=== PATIENT | female | born 1960 | race Caucasian/White ===

== ENCOUNTER 2021-09-09 14:54 | Inpatient (IN) | payer OTHER ==
[~2021-09-09] VITALS: Ht 160 cm; Wt 62.7 kg
[2021-09-09 16:24] LABS: BASOPHIL 0.3 % (0-2); EOSINOPHIL 0 % (0-5); HCT 44.9 % (37.0-47.0); LYMPHOCYTE 18.1 % (15-48); MCH 28.5 pg (25.0-31.0); MCHC 33.4 g/dL (32.0-36.0); MCV 85.4 fL (78.0-100.0); MONOCYTE 16.4 % (0-12); NEUTROPHIL 64.9 % (41-80); NRBC 0; PLT 184 K/uL (150-400); RBC 5.26 M/uL (4.20-5.40); RDW 12.1 % (11.5-14.0); WBC 3.5 K/uL (4.0-10.5)
[2021-09-09 16:34] LABS: ALBUMIN 3.4 g/dL (3.4-5.0); BILIRUBIN - TOTAL 0.5 mg/dL (0.2-1.0); BUN/CREAT RATIO (CALC) 18.7 RATIO; CREATININE 1.07 mg/dL (0.51-0.95); POTASSIUM 3.9 mmol/L (3.5-5.1); TOTAL PROTEIN 7.4 g/dL (6.4-8.2)
[2021-09-09 17:14] LABS: INFLUENZA A NAA NEGATIVE (NEGATIVE)
[2021-09-09 17:19] LABS: CORONAVIRUS 2019 SARS-COV-2 POSITIVE (NEGATIVE)
[2021-09-09 18:03] LABS: BILIRUBIN NEGATIVE (NEGATIVE); BLOOD 2+ Ery/uL (NEGATIVE); CLARITY CLEAR (CLEAR); COLOR YELLOW (YELLOW); GLUCOSE (U) 3+ mg/dL (NORMAL); LEUKOCYTES NEGATIVE Leu/uL (NEGATIVE); NITRITE POSITIVE (NEGATIVE); PROTEIN TRACE (LOW) mg/dL (NEGATIVE); SPECIFIC GRAVITY 1.025 (1.001-1.030)
[2021-09-09 18:24] LABS: LACTIC ACID 1.7 mmol/L (0.4-1.9)
[2021-09-09 18:24] LABS: BACTERIA 3+; SQUAMOUS EPITHELIAL CELLS RARE; URINARY WBC RARE
[2021-09-09 18:53] LABS: INR 0.93 (0.9-1.2); PROTHROMBIN TIME 11.9 SECONDS (11.8-13.4)
[2021-09-09] MEDS ORDERED: ZESTRIL5 MG PO (22:28)
[2021-09-09] MEDS ORDERED: LEVOTHYROXINE137 MC1 PO (22:28)
[2021-09-09] MEDS ORDERED: TOUJEO MAX300 UNIT/1 SC (22:32)
[2021-09-09] MEDS ORDERED: INVOKANA300 MG PO (22:32)
[2021-09-09] MEDS ORDERED: OXYCODONE HCL10 MG PO (22:33)
[2021-09-10 06:47] LABS: BASOPHIL 0 % (0-2); EOSINOPHIL 0 % (0-5); HCT 41.1 % (37.0-47.0); HGB 13.8 g/dl (12.5-16.0); LYMPHOCYTE 24.2 % (15-48); MCH 28.4 pg (25.0-31.0); MCHC 33.6 g/dL (32.0-36.0); MCV 84.6 fL (78.0-100.0); MONOCYTE 15.9 % (0-12); MPV 10.9 fL (6.0-9.5); NEUTROPHIL 59.5 % (41-80); NRBC 0; PLT 147 K/uL (150-400); RBC 4.86 M/uL (4.20-5.40); RDW 11.9 % (11.5-14.0); WBC 2.3 K/uL (4.0-10.5)
[2021-09-10 07:06] LABS: BUN/CREAT RATIO (CALC) 21.4 RATIO; CREATININE 1.03 mg/dL (0.51-0.95); POTASSIUM 4.1 mmol/L (3.5-5.1)
[2021-09-11 06:02] LABS: BASOPHIL 0.2 % (0-2); EOSINOPHIL 0 % (0-5); HCT 39.9 % (37.0-47.0); HGB 13.6 g/dl (12.5-16.0); MCH 28.6 pg (25.0-31.0); MCHC 34.1 g/dL (32.0-36.0); MCV 83.8 fL (78.0-100.0); MONOCYTE 14.1 % (0-12); MPV 11.1 fL (6.0-9.5); NEUTROPHIL 65.3 % (41-80); NRBC 0; PLT 145 K/uL (150-400); RBC 4.76 M/uL (4.20-5.40); RDW 11.9 % (11.5-14.0)
[2021-09-11 06:13] LABS: WBC 4.7 K/uL (4.0-10.5)
[2021-09-11 07:21] LABS: ALBUMIN 2.6 g/dL (3.4-5.0); BILIRUBIN - TOTAL 0.4 mg/dL (0.2-1.0); BUN/CREAT RATIO (CALC) 26.3 RATIO; CREATININE 0.95 mg/dL (0.51-0.95); GLOBULIN (CALCULATION) 3.7 g/dL; TOTAL PROTEIN 6.3 g/dL (6.4-8.2)
--- NOTE | 2021-09-11 16:40 | NUR ---
PER RAN TC TO PT SHE IS ISOLATION TO INQUIRE IF WHAT COMPANY SHE WOULD LIKE TO USE IF SHE NEEDS O2 UPON DISCHARGE. PT. STATED THAT SHE DID NOT HAVE A PREFERENCE AND THAT [employer] WOULD BE FINE. PT. STATED THAT HER DAUGHTER RESIDES WITH HER AND WILL BE ABLE TO ASSIST HER.
[2021-09-13 06:51] LABS: BASOPHIL 0.1 % (0-2); EOSINOPHIL 0 % (0-5); HCT 40.7 % (37.0-47.0); HGB 13.7 g/dl (12.5-16.0); LYMPHOCYTE 18.9 % (15-48); MCH 28.5 pg (25.0-31.0); MCHC 33.7 g/dL (32.0-36.0); MCV 84.6 fL (78.0-100.0); MONOCYTE 10.8 % (0-12); MPV 11.3 fL (6.0-9.5); NEUTROPHIL 69.6 % (41-80); NRBC 0; PLT 149 K/uL (150-400); RBC 4.81 M/uL (4.20-5.40); RDW 12.2 % (11.5-14.0)
[2021-09-13 06:54] LABS: WBC 6.7 K/uL (4.0-10.5)
[2021-09-13 07:50] LABS: BUN/CREAT RATIO (CALC) 29.3 RATIO; CREATININE 0.82 mg/dL (0.51-0.95); POTASSIUM 4.4 mmol/L (3.5-5.1)
[2021-09-15 07:32] LABS: BASOPHIL 0.1 % (0-2); EOSINOPHIL 0 % (0-5); HCT 41.1 % (37.0-47.0); HGB 14.3 g/dl (12.5-16.0); MCH 28.7 pg (25.0-31.0); MCHC 34.8 g/dL (32.0-36.0); MCV 82.4 fL (78.0-100.0); MONOCYTE 15.5 % (0-12); MPV 11.2 fL (6.0-9.5); NEUTROPHIL 72.4 % (41-80); NRBC 0; PLT 168 K/uL (150-400); RBC 4.99 M/uL (4.20-5.40); RDW 12.1 % (11.5-14.0); WBC 10.3 K/uL (4.0-10.5)
[2021-09-15 07:38] LABS: LYMPHOCYTE 11.4 % (15-48)
[2021-09-15 08:45] LABS: CREATININE 0.69 mg/dL (0.51-0.95); POTASSIUM 3.7 mmol/L (3.5-5.1)
[2021-09-17 07:20] LABS: BASOPHIL 0.2 % (0-2); EOSINOPHIL 0.2 % (0-5); HCT 41.5 % (37.0-47.0); HGB 13.9 g/dl (12.5-16.0); MCH 28.1 pg (25.0-31.0); MCHC 33.5 g/dL (32.0-36.0); MCV 83.8 fL (78.0-100.0); MONOCYTE 9.4 % (0-12); MPV 11.8 fL (6.0-9.5); NEUTROPHIL 84.1 % (41-80); NRBC 0; PLT 119 K/uL (150-400); RBC 4.95 M/uL (4.20-5.40); RDW 12.3 % (11.5-14.0); WBC 12.3 K/uL (4.0-10.5)
[2021-09-17 08:51] LABS: ALBUMIN 2.7 g/dL (3.4-5.0); BILIRUBIN - TOTAL 0.6 mg/dL (0.2-1.0); BUN/CREAT RATIO (CALC) 31.8 RATIO; CREATININE 0.85 mg/dL (0.51-0.95); GLOBULIN (CALCULATION) 3.3 g/dL
[2021-09-18 04:44] LABS: BASOPHIL 0 % (0-2); EOSINOPHIL 0.4 % (0-5); HCT 33.7 % (37.0-47.0); HGB 11.1 g/dl (12.5-16.0); LYMPHOCYTE 12.7 % (15-48); MCH 28.3 pg (25.0-31.0); MCHC 32.9 g/dL (32.0-36.0); MONOCYTE 12.5 % (0-12); MPV 11.3 fL (6.0-9.5); NEUTROPHIL 73.4 % (41-80); NRBC 0; PLT 105 K/uL (150-400); RBC 3.92 M/uL (4.20-5.40); RDW 12.6 % (11.5-14.0); WBC 4.8 K/uL (4.0-10.5)
[2021-09-18 06:16] LABS: ALBUMIN 2.2 g/dL (3.4-5.0); BILIRUBIN - TOTAL 0.4 mg/dL (0.2-1.0); BUN/CREAT RATIO (CALC) 34.4 RATIO; CREATININE 0.93 mg/dL (0.51-0.95); GLOBULIN (CALCULATION) 3.3 g/dL; TOTAL PROTEIN 5.5 g/dL (6.4-8.2)
[2021-09-19 05:58] LABS: HCT 33.6 % (37.0-47.0); HGB 11.4 g/dl (12.5-16.0); MCH 28.2 pg (25.0-31.0); MCHC 33.9 g/dL (32.0-36.0); MCV 83.2 fL (78.0-100.0); MPV 11.4 fL (6.0-9.5); RBC 4.04 M/uL (4.20-5.40); RDW 12.1 % (11.5-14.0); WBC 7.8 K/uL (4.0-10.5)
[2021-09-19 06:29] LABS: BUN/CREAT RATIO (CALC) 32.8 RATIO; CREATININE 0.67 mg/dL (0.51-0.95)
[2021-09-20 05:05] LABS: HCT 36.9 % (37.0-47.0); HGB 12.4 g/dl (12.5-16.0); MCH 28.2 pg (25.0-31.0); MCHC 33.6 g/dL (32.0-36.0); MCV 83.9 fL (78.0-100.0); MPV 12.3 fL (6.0-9.5); RBC 4.4 M/uL (4.20-5.40); WBC 6.5 K/uL (4.0-10.5)
[2021-09-20 05:28] LABS: CREATININE 0.72 mg/dL (0.51-0.95); POTASSIUM 4.7 mmol/L (3.5-5.1)
--- NOTE | 2021-09-23 01:33 | NUR ---
At approximately 0120, patient used call light and asked to go to the bathroom. While this nurse was transferring the patient from her bed to the bedside commode, the patient collapsed into the nurse's arms. As she fell onto the nurse, her Vapotherm cannula and NRB came off. This nurse lowered her to the bedside commode and propped her up. This nurse was unable to support the patient and put her Vapotherm and NRB back on her, so he hit the nurse assist button. When assistance arrived, the patient's O2 devices were placed back on her and she was moved back to the bed. Upon returning to the bed, her O2 saturation was 58%. Once in bed, her O2 saturation began to recover. The patient was alert and oriented to person, place, and time. She said that she had a stomach ache, but denied dizziness, palpitatons, and chest pain. At the writing of this note, her O2 saturation was 87%. This nurse will continue to monitor.
[2021-09-23 06:16] LABS: BASOPHIL 0.1 % (0-2); EOSINOPHIL 0.3 % (0-5); HCT 35.8 % (37.0-47.0); HGB 12.1 g/dl (12.5-16.0); LYMPHOCYTE 6.3 % (15-48); MCH 28.3 pg (25.0-31.0); MCHC 33.8 g/dL (32.0-36.0); MCV 83.8 fL (78.0-100.0); MPV 10.8 fL (6.0-9.5); NEUTROPHIL 86.5 % (41-80); NRBC 0; PLT 236 K/uL (150-400); RBC 4.27 M/uL (4.20-5.40); RDW 12.2 % (11.5-14.0); WBC 14.5 K/uL (4.0-10.5)
[2021-09-23 07:09] LABS: BUN/CREAT RATIO (CALC) 37.3 RATIO; CREATININE 0.75 mg/dL (0.51-0.95); POTASSIUM 4.3 mmol/L (3.5-5.1)
--- NOTE | 2021-09-23 13:37 | NUR ---
0730 AM - PT 02 SATS RANGING FROM 65-75 ON VAPOTHERM 40/100% W/ NONREBREATHER AT 15L OVER THAT. DR CLEMENS NOTIFIED. THIS RN, RT AND MD EACH DISCUSSED W/ PT HER PREVIOUSLY STATED WISHES TO NOT BE INTUBATED. PT STATED THIS IS STILL HER WISH. SISTER MIRIAM LISTED EMERGENCY CONTACT. SHE WAS CONTACTED AND UPDATED ON PT'S DETERIORATING STATUS. NOTIFIED THAT FAMILY MAY VISIT. 1200- PT SISTER, MOTHER, DAUGHTER AND SON AT BEDSIDE. S/W DR CLEMENS ABOUT DNR STATUS PT IS NOW MINIMALLY RESPONSIVE W/ BPS 70S/40S. 1330 - PT ON SAME AMOUNT OF 02, SATS REMAIN IN 70S, BPS REMAIN 70S/40S.
== END 2021-09-23 23:50 | disposition expired | DRG 177 ==
LOC: FER 14:54 → FMS 19:23 → FTCU 09-17 15:09
PROVIDERS: Hospitalist; Internal Medicine; Nurse Practitioner; Physician Assistant; ADMIT Internal Medicine
PROC: XW033E5 Introduction of Remdesivir Anti-infective into Peripheral Vein, Percutaneous Approach, New Technology Group 5 (ICD-10-PCS; 2021-09-09)
PROC: 8E0ZXY6 Isolation (ICD-10-PCS; 2021-09-09)
PROC: 5A0955A Assistance with Respiratory Ventilation, Greater than 96 Consecutive Hours, High Flow/Velocity Cannula (ICD-10-PCS; principal; 2021-09-17)
PROC: XW0DXM6 Introduction of Baricitinib into Mouth and Pharynx, External Approach, New Technology Group 6 (ICD-10-PCS; 2021-09-17)
DX: U07.1 COVID-19 (principal); J12.82 Pneumonia due to coronavirus disease 2019; J96.01 Acute respiratory failure with hypoxia; G93.41 Metabolic encephalopathy; N17.9 Acute kidney failure, unspecified; E87.1 Hypo-osmolality and hyponatremia; K21.9 Gastro-esophageal reflux disease without esophagitis; E89.0 Postprocedural hypothyroidism; G89.29 Other chronic pain; Z66 Do not resuscitate; Z51.5 Encounter for palliative care; D69.6 Thrombocytopenia, unspecified; E11.40 Type 2 diabetes mellitus with diabetic neuropathy, unspecified; E11.65 Type 2 diabetes mellitus with hyperglycemia; T38.0X5A Adverse effect of glucocorticoids and synthetic analogues, initial encounter; Z98.890 Other specified postprocedural states; Z79.890 Hormone replacement therapy; Z79.899 Other long term (current) drug therapy; Z88.2 Allergy status to sulfonamides
CPT/HCPCS: 36415; 36600; 71275; 80048; 80053; 81001; 82728; 82803; 82962; 83036; 83605; 83690; 84484; 85025; 85379; 85610; 87040; 87088; 87205; 93005; 94640; 94667; 94668; C9399; J0696; J0780; J1100; J1650; J1815; J2060; J2405; J2550; J7030; J7050; J8540; Q9967; U0002